=== PATIENT | female | born 1955 | race Native Hawaiian/Other Pacific Islander ===

== ENCOUNTER 2021-12-30 14:04 | Emergency (ER) | payer OTHER ==
[~2021-12-30] VITALS: Ht 167.6 cm; Wt 55.3 kg
[2021-12-30 14:09] VITALS: TEMP 97.4
[2021-12-30 14:39] LABS: PLATELET COUNT 276 K/uL (152-353)
[2021-12-30 14:42] VITALS: BP 118/52
[2021-12-30 14:50] LABS: POTASSIUM 5.2 mmol/L (3.6-5.2)
[2021-12-30 15:02] LABS: PARTIAL THROMBOPLASTIN TIME 21.9 SECONDS (24.5-33.6)
== END 2021-12-30 16:38 | disposition home or self-care (01) ==
LOC: ED 14:04
PROVIDERS: Family Medicine
DX: R53.1 Weakness (principal); D64.89 Other specified anemias; N18.30 Chronic kidney disease, stage 3 unspecified; R73.9 Hyperglycemia, unspecified; R06.02 Shortness of breath
CPT/HCPCS: 80053; 81000; 82550; 83735; 84484; 85027; 85379; 85610; 85730; 93005; 99283